=== PATIENT | male | born 1955 | race Caucasian/White ===

== ENCOUNTER → 2021-01-20 10:03 | Outpatient (CLI) | payer BC, SELFPAY ==
--- NOTE | ~2021-01-20 | MR_ITS ---
EXAMINATION: MR shoulder RT wo con DATE: 01/20/2021 10:53 INDICATION: Right rotator cuff arthropathy with right shoulder pain TECHNIQUE: Magnetic resonance imaging (MRI) of the right shoulder was performed without intravenous c ontrast. Sequences included axial PD-weighted FS FSE, coronal oblique PD-weighted FS FSE, coronal obl ique T2-weighted FS FSE, sagittal PD-weighted FS FSE, and sagittal T1-weighted SE. COMPARISON: None. FINDINGS: Coracoacromial arch: The acromion undersurface is curved in morphology (type II). The coracoacromial ligament is normal. M oderate acromioclavicular osteoarthritis. Rotator cuff: Moderate supraspinatus tendinopathy with small full-thickness tear along the superior facet footplate measuring 10 mm AP and 3 mm medial to lateral. The tear appears to extend posteriorly as a mild bairon cular sided tear involving the supraspinatus contribution to the conjoined portion of the supraspinat us and infraspinatus tendons. Mild infraspinatus tendinopathy without discrete tear. The teres minor tendon is normal. Mild subscapularis tendinopathy without discrete tear. Normal rotator cuff muscle b ulk and signal. Biceps tendon, glenoid labrum and glenohumeral cartilage: Long head of the biceps tendon is normal. Small tear with linear increased intrasubstance signal at t he 11:00-12:00 position of the posterior superior glenoid labrum. Glenohumeral cartilage is normal. Fluid: Physiologic amount of fluid in the glenohumeral joint and biceps tendon sheath. No loose osteochondra l bodies. Small amount of fluid in the subacromial/subdeltoid bursa consistent with mild bursitis. Bones: Normal marrow signal with no fracture or abnormal marrow replacing process. IMPRESSION: 1. Small full-thickness tear at the superior facet footplate of the supraspinatus tendon which extend s posteriorly as a small articular sided tear of the conjoined portion of the supraspinatus and infra spinatus tendons. 2. Moderate acromioclavicular osteoarthritis. 3. Mild subacromial/subdeltoid bursitis. Reviewed, dictated and finalized at location A. IMPRESSION: 1. Small full-thickness tear at the superior facet footplate of the supraspinat us tendon which extends posteriorly as a small articular sided tear of the conj oined portion of the supraspinatus and infraspinatus tendons. 2. Moderate acromioclavicular osteoarthritis. 3. Mild subacromial/subdeltoid bursitis.
== END ==
PROVIDERS: PCP Family Medicine; Visit Provider Family Medicine
DX: M75.101 Unspecified rotator cuff tear or rupture of right shoulder, not specified as traumatic (principal); S43.431A Superior glenoid labrum lesion of right shoulder, initial encounter; M19.011 Primary osteoarthritis, right shoulder; M75.51 Bursitis of right shoulder
CPT/HCPCS: 73221